=== PATIENT | male | born 1955 | race Caucasian/White ===

== ENCOUNTER 2018-05-27 00:20 | Emergency (ER) | payer MEDICARE, OTHER ==
[~2018-05-27] VITALS: Ht 175.3 cm; Wt 63.5 kg
[2018-05-27] MEDS ORDERED: CARVEDILOL6.25 M1 PO (00:41)
[2018-05-27] MEDS ORDERED: ATIVAN1 MG PO (00:42)
[2018-05-27] MEDS ORDERED: ADDERALL XR 2020 MG PO (00:42)
[2018-05-27] MEDS ORDERED: VIIBRYD40 MG PO (00:42)
[2018-05-27] MEDS ORDERED: VYVANSE70 MG PO (00:43)
[2018-05-27] MEDS ORDERED: KEFLEX500 M1 PO (01:09)
[2018-05-27] MEDS ORDERED: PERCOCET 5-3251 EACH PO (01:09)
[2018-05-27 01:51] VITALS: BP 141/96
[2018-05-28] MEDS ORDERED: PREDNISONE 20 M20 M1 PO (21:43)
== END 2018-05-27 01:53 | disposition home or self-care (01) ==
LOC: M.ERS 00:20
DX: S62.522A Displaced fracture of distal phalanx of left thumb, initial encounter for closed fracture (principal); S61.012A Laceration without foreign body of left thumb without damage to nail, initial encounter; Z88.1 Allergy status to other antibiotic agents; Z87.01 Personal history of pneumonia (recurrent); W26.8XXA Contact with other sharp object(s), not elsewhere classified, initial encounter; Y93.89 Activity, other specified; Y92.89 Other specified places as the place of occurrence of the external cause; Y99.8 Other external cause status

== ENCOUNTER 2018-05-28 20:49 | Emergency (ER) | payer MEDICARE, OTHER ==
[~2018-05-28] VITALS: Ht 182.9 cm; Wt 80.1 kg
[~2018-05-28 20:49] MED LIST: ADDERALL XR 2020 MG PO; ATIVAN1 MG PO; CARVEDILOL6.25 M1 PO; KEFLEX500 M1 PO; PERCOCET 5-3251 EACH PO; VIIBRYD40 MG PO; VYVANSE70 MG PO
[2018-05-28 21:06] LABS: ABSOLUTE BASOPHILS 0.1 thou/uL (0.0-0.2); ABSOLUTE EOSINOPHILS 0.2 thou/uL (0.0-0.7); ABSOLUTE NEUTROPHILS 5.1 thou/uL (1.6-8.1); BASOPHILS 1.4 %; EOSINOPHILS 2.3 %; HEMATOCRIT 38.2 % (42.0-52.0); LYMPHOCYTES 23.8 %; MCH 30.7 pg (26.0-34.0); MCHC 34.1 g/dL (28.0-37.0); MCV 90.1 fL (80.0-100.0); MONOCYTES 11.7 %; MPV 7.7 fl. (7.2-11.1); NUCLEATED RBCS 0 /100WBC; PLATELET COUNT* 261 thou/uL (150-400); POLYS 60.8 %; RBC 4.24 mil/uL (4.50-6.00); RDW-CV 13.6 % (10.5-14.5); WBC 8.3 thou/uL (4.0-11.0)
[2018-05-28 21:16] LABS: ANION GAP 5 mmol/L (7-16); APTT 29.8 Seconds (25.0-31.3); BUN 20 mg/dL (7-18); CALCIUM 8.6 mg/dL (8.5-10.1); CHLORIDE 99 mmol/L (98-107); CO2 29 mmol/L (21-32); CREATININE 1.1 mg/dL (0.6-1.3); GLUCOSE 94 mg/dL (70-99); POTASSIUM 4.1 mmol/L (3.5-5.1); PROTIME 10.2 Seconds (9.20-11.50); SODIUM 133 mmol/L (136-145)
[2018-05-28 21:31] LABS: ALBUMIN 3.5 g/dL (3.4-5.0); ALKALINE PHOSPHATASE 105 U/L (46-116); LIPASE 85 U/L (73-393); MAGNESIUM 1.9 mg/dL (1.8-2.4); NT-PRO BRAIN NAT PEPTIDE 354 pg/mL (<300); SGOT 19 U/L (15-37); SGPT 21 U/L (30-65); TOTAL BILIRUBIN 0.2 mg/dL (<0.1-1.0); TOTAL PROTEIN 7.5 g/dL (6.4-8.2); TROPONIN-I LEVEL <0.06 ng/mL (<0.06)
[2018-05-28] MEDS ORDERED: PREDNISONE 20 M20 M1 PO (21:43)
[2018-05-28 22:08] VITALS: BP 138/87
--- NOTE | 2018-05-30 10:40 | EKG ---
[place] [address] ELECTROCARDIOGRAM REPORT Name: CONNER DIAZ Room: [facility]#: [id number] Admission: 05/28/18 Attend Phys: Discharge: 05/28/18 Date of : 57 Report #: [id number] THIS REPORT FOR: //name// [facility] ED Test Date: 2018-05-28 Test Time: 20:59:53 Pat Name: CONNER JOE Department: Room: Gender: M [employer]ulator: MARLENE : 1955 Requested By: Frederick Kramer Order Number: [id number] MD: Conner Beyer Measurements Intervals [place] Rate: 93 P: 77 PA: 145 QRS: 79 QRSD: 94 T: 54 QT: 368 QTc: 458 Interpretive Statements Sinus rhythm Low voltage, extremity leads RSR' in V1 or V2, right VCD or RVH Compared to ECG 02/09/2008 13:00:57 Low QRS voltage now present Electronically Signed On 05-30-2018 10:40:44 CDT by Conner Beyer [email or web address] <ELECTRONICALLY SIGNED> By: Conner Beyer MD, [facility] 05/30/18 1040 58 58 Conner Beyer MD, [facility] /EPI
== END 2018-05-28 22:09 | disposition home or self-care (01) ==
LOC: M.ERS 20:49
PROVIDERS: Family Medicine
DX: J44.1 Chronic obstructive pulmonary disease with (acute) exacerbation (principal); Z88.1 Allergy status to other antibiotic agents; Z87.01 Personal history of pneumonia (recurrent)

== ENCOUNTER 2019-03-23 09:21 | Emergency (ER) | payer MEDICARE ==
[~2019-03-23] VITALS: Ht 180.3 cm; Wt 63.5 kg
[~2019-03-23 09:21] MED LIST changes: +PREDNISONE 20 M20 M1 PO
[2019-03-23] MEDS ORDERED: ALBUTEROL2.5 MG/31 INH (09:45)
[2019-03-23] MEDS ORDERED: PERCOCET 7.5-31 EACH PO (10:44)
[2019-03-23] MEDS ORDERED: AZITHROMYCIN 2250 MG PO (10:44)
[2019-03-23 10:54] VITALS: BP 125/85
== END 2019-03-23 10:54 | disposition home or self-care (01) ==
LOC: M.ERS 09:21
DX: S22.42XA Multiple fractures of ribs, left side, initial encounter for closed fracture (principal); Z88.1 Allergy status to other antibiotic agents; W01.10XA Fall on same level from slipping, tripping and stumbling with subsequent striking against unspecified object, initial encounter; Y93.89 Activity, other specified; Y92.89 Other specified places as the place of occurrence of the external cause; Y99.8 Other external cause status

== ENCOUNTER 2019-05-12 19:27 | Inpatient (IN) | payer MEDICARE ==
[~2019-05-12] VITALS: Ht 180.3 cm; Wt 64.4 kg
[~2019-05-12 19:27] MED LIST changes: +AZITHROMYCIN 2250 MG PO; +PERCOCET 7.5-31 EACH PO
[2019-05-12 19:28] VITALS: BP 133/92
[2019-05-12] MEDS ORDERED: CLONAZEPAM 1 MG1 M1 PO (19:35)
[2019-05-12 20:07] LABS: HEMATOCRIT 40.1 % (42.0-52.0); HEMOGLOBIN 13.3 gm/dL (14.0-18.0); MCH 30.6 pg (26.0-34.0); MCHC 33.2 g/dL (28.0-37.0); MCV 92.2 fL (80.0-100.0); MPV 6.9 fl. (7.2-11.1); NUCLEATED RBCS 0 /100WBC; PLATELET COUNT* 340 thou/uL (150-400); RBC 4.35 mil/uL (4.50-6.00); RDW-CV 13.7 % (10.5-14.5); WBC 5.4 thou/uL (4.0-11.0)
[2019-05-12 20:18] LABS: BE 5.6 mmol/L (-2 to +3); PO2 85.6 mmHg (75.0-100.0); pH 7.386 (7.340-7.450)
[2019-05-12 20:18] LABS: ANION GAP 5 mmol/L (7-16); BUN 6 mg/dL (7-18); CALCIUM 8.8 mg/dL (8.5-10.1); CHLORIDE 92 mmol/L (98-107); CO2 34 mmol/L (21-32); CREATININE 0.9 mg/dL (0.6-1.3); GLUCOSE 92 mg/dL (70-99); POTASSIUM 3.6 mmol/L (3.5-5.1); SODIUM 131 mmol/L (136-145)
[2019-05-12 20:19] LABS: APTT 26.9 Seconds (25.0-31.3); INR 1.1; PROTIME 11.2 Seconds (9.20-11.50)
[2019-05-12 20:22] LABS: PCO2 54.7 mmHg (35.0-45.0)
[2019-05-12 20:30] LABS: ALBUMIN 3.2 g/dL (3.4-5.0); ALKALINE PHOSPHATASE 91 U/L (46-116); LIPASE 52 U/L (73-393); MAGNESIUM 1.9 mg/dL (1.8-2.4); NT-PRO BRAIN NAT PEPTIDE 225 pg/mL (<300); SGOT 18 U/L (15-37); SGPT 24 U/L (30-65); TOTAL BILIRUBIN 0.2 mg/dL (<0.1-1.0); TOTAL PROTEIN 6.7 g/dL (6.4-8.2); TROPONIN-I LEVEL <0.06 ng/mL (<0.06)
[2019-05-12 20:42] LABS: ABSOLUTE EOSINOPHILS 0.1 thou/uL (0.0-0.7); ABSOLUTE LYMPHOCYTES 1.5 thou/uL (0.8-5.3); ABSOLUTE MONOCYTES 0.6 thou/uL (0.0-1.2); ABSOLUTE NEUTROPHILS 3.2 thou/uL (1.6-8.1); PLATELET ESTIMATE ADEQUATE
[2019-05-12 21:00] VITALS: BP 137/91
[2019-05-12 21:20] VITALS: BP 132/82
[2019-05-12 21:40] VITALS: BP 137/91
[2019-05-13 08:41] VITALS: BP 161/95
[2019-05-13] MEDS ORDERED: SPIRIVA INH (11:51)
[2019-05-13] MEDS ORDERED: FLOVENT HFA 4444 MCG INH ×2 (11:52→13:44)
[2019-05-13] MEDS ORDERED: LATUDA40 MG PO (13:40)
[2019-05-13] MEDS ORDERED: IPRAT-ALBUT 0.5-3 ML INH (13:42)
[2019-05-13] MEDS ORDERED: NUVIGIL50 MG PO (13:43)
[2019-05-13 15:28] LABS: URINE BILIRUBIN NEGATIVE (Negative); URINE BLOOD NEGATIVE (Negative); URINE CLARITY CLEAR; URINE COLOR YELLOW; URINE GLUCOSE-RANDOM TRACE (Negative); URINE KETONES NEGATIVE (Negative); URINE LEUKOCYTES-REFLEX NEGATIVE (Negative); URINE NITRITE-REFLEX NEGATIVE (Negative); URINE PROTEIN NEGATIVE (Negative); URINE UROBILINOGEN 0.2 E.U./dl (0.2-1.0)
[2019-05-13 15:47] LABS: AMP/METHAMP Negative (Negative); BARBITURATES Negative (Negative); BENZODIAZEPINES Negative (Negative); COCAINE Negative (Negative); METHADONE Negative (Negative); OPIATES Negative (Negative); PCP Negative (Negative); THC Negative (Negative)
[2019-05-13 17:24] VITALS: BP 139/90
[2019-05-13 19:45] VITALS: BP 140/93
[2019-05-14 03:38] LABS: ABSOLUTE BASOPHILS 0.1 thou/uL (0.0-0.2); ABSOLUTE LYMPHOCYTES 1.8 thou/uL (0.8-5.3); ABSOLUTE MONOCYTES 0.8 thou/uL (0.0-1.2); ABSOLUTE NEUTROPHILS 3.4 thou/uL (1.6-8.1); EOSINOPHILS 0.6 %; HEMATOCRIT 36.2 % (42.0-52.0); HEMOGLOBIN 12.3 gm/dL (14.0-18.0); LYMPHOCYTES 30.1 %; MCH 30.9 pg (26.0-34.0); MONOCYTES 12.6 %; NUCLEATED RBCS 0 /100WBC; PLATELET COUNT* 323 thou/uL (150-400); POLYS 55.7 %; RBC 3.98 mil/uL (4.50-6.00); RDW-CV 14.2 % (10.5-14.5); WBC 6.1 thou/uL (4.0-11.0)
[2019-05-14 04:04] LABS: CALCIUM 8.7 mg/dL (8.5-10.1); CREATININE 0.8 mg/dL (0.6-1.3); MAGNESIUM 1.8 mg/dL (1.8-2.4); POTASSIUM 3.9 mmol/L (3.5-5.1)
[2019-05-14 08:54] VITALS: BP 143/93
[2019-05-14 16:25] VITALS: BP 141/87
[2019-05-14 19:45] VITALS: BP 152/92
[2019-05-15 05:44] LABS: CALCIUM 8.5 mg/dL (8.5-10.1); CREATININE 0.8 mg/dL (0.6-1.3); POTASSIUM 4.2 mmol/L (3.5-5.1)
[2019-05-15 07:15] VITALS: BP 138/93
[2019-05-15] MEDS ORDERED: IPRAT-ALBUT 0.5-3 ML INH (10:30)
[2019-05-15] MEDS ORDERED: CARVEDILOL6.25 M1 PO (10:30)
[2019-05-15] MEDS ORDERED: VIIBRYD40 MG PO (10:31)
[2019-05-15] MEDS ORDERED: PREDNISONE 20 M20 MG PO (10:32)
[2019-05-15] MEDS ORDERED: PANTOPRAZOLE SO40 M1 PO (10:32)
[2019-05-15] MEDS ORDERED: THERA M PLUS T1 EAC2 PO (10:32)
[2019-05-15] MEDS ORDERED: CEFDINIR300 MG PO (10:34)
[2019-05-15] MEDS ORDERED: AZITHROMYCIN 2250 MG PO (10:34)
[2019-05-15] MEDS ORDERED: ALBUTEROL2.5 MG/31 INH (12:44)
--- NOTE | 2019-05-15 13:04 | EKG ---
[place] [address] ELECTROCARDIOGRAM REPORT Name: CONNER DIAZ Room: [address] ADM IN .R.#: [id number] Admission: 05/12/19 Attend Phys: Cesar Hicks MD Discharge: Date of : 57 Report #: [id number] THIS REPORT FOR: //name// [facility] ED Test Date: 2019-05-12 Test Time: 19:42:02 Pat Name: CONNER DIAZ Department: Room: [facility] Gender: M [employer] Setup Worker: MD : 1955 Requested By: Frederick Kramer Order Number: [id number] MD: Ash Quinonez Measurements Intervals [place] Rate: 96 P: 84 CA: 140 QRS: -43 QRSD: 90 T: 73 QT: 355 QTc: 449 Interpretive Statements Sinus rhythm supraentricular premature complex Probable left atrial enlargement Left axis deviation Anteroseptal infarct, age indeterminate Compared to ECG 05/28/2018 20:59:53 no change Electronically Signed On 05-15-2019 13:04:08 CDT by Ash Quinonez [email or web address] <ELECTRONICALLY SIGNED> By: Ash Quinonez MD, [facility] 05/15/19 1304 41 41 Ash Quinonez MD, [facility] /EPI
[2019-05-15 14:30] VITALS: BP 138/73
[2019-05-15 16:12] VITALS: BP 138/73
[2019-05-15 16:34] VITALS: BP 138/73
== END 2019-05-15 16:40 | disposition home or self-care (01) | DRG 189 ==
LOC: M.ERS 19:27 → M.TBA-ER 20:36 → M.ORTHSURG 20:36
PROVIDERS: Family Medicine; ADMIT Internal Medicine
DX: J96.22 Acute and chronic respiratory failure with hypercapnia (principal); J44.1 Chronic obstructive pulmonary disease with (acute) exacerbation; E44.0 Moderate protein-calorie malnutrition; J96.21 Acute and chronic respiratory failure with hypoxia; F41.9 Anxiety disorder, unspecified; F32.9 Major depressive disorder, single episode, unspecified; Z99.81 Dependence on supplemental oxygen; Z87.01 Personal history of pneumonia (recurrent); Z79.899 Other long term (current) drug therapy; Z88.1 Allergy status to other antibiotic agents; Z87.891 Personal history of nicotine dependence; Z91.19 Patient's noncompliance with other medical treatment and regimen; Z68.1 Body mass index [BMI] 19.9 or less, adult